=== PATIENT | female | born 1990 | race African-American/Black ===

== ENCOUNTER 2017-10-12 08:50 | Emergency (ER) | payer OTHER ==
[~2017-10-12] VITALS: Ht 167.6 cm; Wt 102.5 kg
[~2017-10-12 08:50] MED LIST: BENADRYL ITCH28.3 GM TP; NOHOMEMEDICATIONS; PREDNISONE 20 M20 MG PO
[2017-10-12] MEDS ORDERED: CENTRUM SILVER1 EAC2 PO (09:03)
[2017-10-12] MEDS ORDERED: IRON325 PO (09:03)
[2017-10-12] MEDS ORDERED: FISH OIL 1,001000 M2 PO (09:04)
[2017-10-12] MEDS ORDERED: KEFLEX500 M1 PO (09:49)
[2017-10-12] MEDS ORDERED: IBUPROFEN 800800 M1 PO (09:51)
[2017-10-12 10:11] LABS: ABSOLUTE NEUTROPHILS 4.7 thou/uL (1.4-8.2); BASOPHILS 0.6 % (0.0-2.0); EOSINOPHILS 4.1 % (0.0-3.0); HEMATOCRIT 39.9 % (37.0-47.0); HEMOGLOBIN 12.9 gm/dL (12.0-15.0); LYMPHOCYTES 27.6 % (24.0-44.0); MCH 25.8 pg (26.0-34.0); MCHC 32.4 g/dL (28.0-37.0); MCV 79.6 fL (80.0-100.0); MONOCYTES 6.3 % (1.0-8.0); PLATELET COUNT 255 thou/uL (150-400); POLYS 61.4 % (36.0-66.0); RBC 5.01 mil/uL (4.20-5.00); RDW 14.1 % (10.5-14.5); WBC 7.6 thou/uL (4.0-11.0)
[2017-10-12 10:14] LABS: URINE BILIRUBIN NEGATIVE (Negative); URINE BLOOD NEGATIVE (Negative); URINE CLARITY CLEAR; URINE COLOR YELLOW; URINE GLUCOSE-RANDOM* NEGATIVE (Negative); URINE KETONES NEGATIVE (Negative); URINE LEUKOCYTES NEGATIVE (Negative); URINE NITRITE NEGATIVE (Negative); URINE PROTEIN (DIPSTICK) NEGATIVE (Negative); URINE UROBILINOGEN 0.2 E.U./dl (0.2-1.0)
[2017-10-12 10:19] LABS: CALCIUM 9.3 mg/dL (8.5-10.1); CREATININE 0.7 mg/dL (0.6-1.0)
[2017-10-12 10:31] VITALS: BP 122/80
== END 2017-10-12 10:32 | disposition home or self-care (01) ==
LOC: ER 08:50
PROVIDERS: Physician Assistant
DX: R59.1 Generalized enlarged lymph nodes (principal); Z88.1 Allergy status to other antibiotic agents

== ENCOUNTER 2018-07-08 18:24 | Emergency (ER) | payer OTHER ==
[~2018-07-08] VITALS: Ht 170.2 cm; Wt 106.6 kg
[~2018-07-08 18:24] MED LIST changes: +CENTRUM SILVER1 EAC2 PO; +FISH OIL 1,001000 M2 PO; +IBUPROFEN 800800 M1 PO; +IRON325 PO; +KEFLEX500 M1 PO
[2018-07-08 19:20] LABS: HEMATOCRIT 37.1 % (37.0-47.0); MCHC 32.4 g/dL (28.0-37.0); MCV 80.2 fL (80.0-100.0); RBC 4.63 mil/uL (4.20-5.00); RDW 14.2 % (10.5-14.5); WBC 8.9 thou/uL (4.0-11.0)
[2018-07-08 19:26] LABS: ANION GAP 7 mmol/L (7-16); BUN 13 mg/dL (7-18); CALCIUM 8.8 mg/dL (8.5-10.1); CHLORIDE 104 mmol/L (98-107); CO2 28 mmol/L (21-32); CREATININE 0.8 mg/dL (0.6-1.0); GLUCOSE 93 mg/dL (74-106); POTASSIUM 3.8 mmol/L (3.5-5.1); SODIUM 139 mmol/L (136-145)
[2018-07-08 19:35] LABS: TROPONIN-I <0.06 ng/mL (<0.06)
[2018-07-08] MEDS ORDERED: MOBIC7.5 MG PO (19:39)
[2018-07-08 20:35] VITALS: BP 122/67
--- NOTE | 2018-07-08 22:25 | EKG ---
[address] [address] ELECTROCARDIOGRAM REPORT Name: JOHNNIE PALACIO Room #: DEP Estefanía#: [id number] Admission: 07/08/18 Attend Phys: Discharge: 07/08/18 Date of : 88 Report #: [id number] THIS REPORT FOR: //name// [facility] ED Test Date: 2018-07-08 Test Time: 18:27:53 Pat Name: JOHNNIE PALACIO Department: Room: Gender: F Office Automation Clerk: ANDREAS : 1990 Requested By: Gilbert Neil Order Number: [id number] MD: Alonso Corey Measurements Intervals [place] Rate: 56 P: 32 CT: 152 QRS: 57 QRSD: 90 T: 30 QT: 433 QTc: 418 Interpretive Statements Sinus rhythm No previous ECG available for comparison Electronically Signed On 07-08-2018 22:24:59 [employer] by Alonso Corey [email or web address] <ELECTRONICALLY SIGNED> By: Alonso Corey MD 07/08/18 2224 1827 182 Alonso Corey MD /DOUG
== END 2018-07-08 20:36 | disposition home or self-care (01) ==
LOC: ER 18:24
PROVIDERS: Physician Assistant
DX: M94.0 Chondrocostal junction syndrome [Tietze] (principal); Z88.1 Allergy status to other antibiotic agents